=== PATIENT | male | born 1965 | race Caucasian/White ===

== ENCOUNTER 2022-09-18 15:29 | Observation (INO) ==
--- NOTE | 2022-09-18 17:33 | EKG ---
Test Reason : increased heart rate, shortness of breath Blood Pressure : */* mmHG Vent. Rate : 108 BPM Atrial Rate : 108 BPM P-R Int : 152 ms QRS Dur : 84 ms QT Int : 350 ms P-R-T Axes : 54 -50 48 degrees QTc Int : 469 ms Sinus tachycardia with occasional premature ventricular complexes Possible Left atrial enlargement Left anterior fascicular block Abnormal ECG No previous ECGs available Confirmed by Evin Arana ([id number]) on 09/18/2022 5:46:56 PM Referred By: Confirmed By: Evin Arana
[2022-09-18] MEDS: ASPIRIN PO SCH (17:53)
[2022-09-18 17:59] LABS: BASOPHILS # (AUTO) 0.1 X10^3/uL (0.0-0.1); BASOPHILS % (AUTO) 0.6 % (0.2-1.0); EOSINOPHILS % (AUTO) 0.3 % (0.9-2.9); HEMATOCRIT 43.6 % (42.0-54.0); HEMOGLOBIN 14.6 g/dL (13.5-18.0); LYMPHOCYTES # (AUTO) 2.7 X10^3/uL (1.3-2.9); LYMPHOCYTES % (AUTO) 19.4 % (21.0-51.0); MEAN CORPUSCULAR HEMOGLOBIN 30.5 pg (27.0-34.0); MEAN CORPUSCULAR HGB CONC 33.6 g/dL (33.0-35.0); MEAN CORPUSCULAR VOLUME 90.8 fL (80.0-100.0); MEAN PLATELET VOLUME 9.2 fL (7.4-11.0); MONOCYTES # (AUTO) 0.8 x10^3/uL (0.3-0.8); NEUTROPHILS # (AUTO) 10.2 x10^3/uL (2.2-4.8); NEUTROPHILS % (AUTO) 73.7 % (42.0-75.0); PLATELET COUNT 193 X10^3/uL (150.0-450.0); WHITE BLOOD COUNT 13.8 X10^3/uL (3.6-10.0)
[2022-09-18 18:00] VITALS: BMI 26.8
[2022-09-18 18:29] LABS: ALANINE AMINOTRANSFERASE 34 Units/L (12-78); ALBUMIN 3.5 g/dL (3.4-5.0); ALKALINE PHOSPHATASE 97 Units/L (46-116); ASPARTATE AMINO TRANSFERASE 24 Units/L (15-37); BLOOD UREA NITROGEN 16 mg/dL (7-18); CALCIUM 8.4 mg/dL (8.5-10.1); CARBON DIOXIDE 25.2 mmol/L (21-32); CHLORIDE 100 mmol/L (98-107); COR NA(FOR HYPERGLY) 136 mmol/L (136-145); CREATININE 1.13 mg/dL (0.70-1.30); GLUCOSE 115 mg/dL (65-99); SODIUM 136 mmol/L (136-145); TOTAL PROTEIN 6.3 g/dL (6.4-8.2); eGFR NON BLACK RACES > 60 (>60)
[2022-09-18] MEDS: LIPITOR TAB 40 MG PO SCH (20:06)
[2022-09-18 20:14] LABS: APPEARANCE,URINE CLEAR (CLEAR); BLOOD/HEMOGLOBIN,URINE NEGATIVE (NEGATIVE); COLOR,URINE DARK YELLOW (YELLOW); GLUCOSE, URINE NEGATIVE (NEGATIVE); KETONES,URINE NEGATIVE (NEGATIVE); NITRITES,URINE NEGATIVE (NEGATIVE); PROTEIN,URINE TRACE (NEGATIVE)
[2022-09-18 20:15] LABS: BILIRUBIN,URINE NEGATIVE (NEGATIVE); LEUKOCYTE ESTERASE ,URINE NEGATIVE (NEGATIVE); UROBILINOGEN,URINE NORMAL (NORMAL)
[2022-09-18 20:18] LABS: BACTERIA,URINE NEGATIVE /HPF (NEGATIVE); HYALINE CASTS, URINE RARE /LPF (NEGATIVE); RBC,URINE 0-2 /HPF (0-3); SQUAMOUS EPITHELIAL CELL,UR RARE /HPF (NEGATIVE)
--- NOTE | 2022-09-18 22:37 | EKG ---
Test Reason : shortness of breath, chest pain Blood Pressure : */* mmHG Vent. Rate : 94 BPM Atrial Rate : 94 BPM P-R Int : 156 ms QRS Dur : 86 ms QT Int : 368 ms P-R-T Axes : 59 -58 44 degrees QTc Int : 460 ms Normal sinus rhythm Possible Left atrial enlargement Left anterior fascicular block Abnormal ECG When compared with ECG of 18-SEP-2022 17:23, premature ventricular complexes are no longer present Confirmed by Evin Arana (4) on 09/20/2022 4:39:08 PM Referred By: Confirmed By: Evin Arana
[2022-09-19 05:25] LABS: BASOPHILS # (AUTO) 0.1 X10^3/uL (0.0-0.1); BASOPHILS % (AUTO) 0.5 % (0.2-1.0); EOSINOPHILS % (AUTO) 0.3 % (0.9-2.9); HEMATOCRIT 41.1 % (42.0-54.0); HEMOGLOBIN 14.2 g/dL (13.5-18.0); LYMPHOCYTES # (AUTO) 2.7 X10^3/uL (1.3-2.9); LYMPHOCYTES % (AUTO) 21.2 % (21.0-51.0); MEAN CORPUSCULAR HEMOGLOBIN 31.1 pg (27.0-34.0); MEAN CORPUSCULAR HGB CONC 34.5 g/dL (33.0-35.0); MEAN CORPUSCULAR VOLUME 90.2 fL (80.0-100.0); MEAN PLATELET VOLUME 9.4 fL (7.4-11.0); MONOCYTES # (AUTO) 0.8 x10^3/uL (0.3-0.8); MONOCYTES % (AUTO) 6.5 % (0.0-13.0); NEUTROPHILS # (AUTO) 9.1 x10^3/uL (2.2-4.8); NEUTROPHILS % (AUTO) 71.5 % (42.0-75.0); PLATELET COUNT 180 X10^3/uL (150.0-450.0); RED BLOOD COUNT 4.56 X10^6/uL (4.7-6.0); RED CELL DISTRIBUTION WIDTH 14.1 % (11.6-16.5); WHITE BLOOD COUNT 12.7 X10^3/uL (3.6-10.0)
[2022-09-19 05:50] LABS: ALANINE AMINOTRANSFERASE 34 Units/L (12-78); ALBUMIN 3.1 g/dL (3.4-5.0); ALKALINE PHOSPHATASE 97 Units/L (46-116); ASPARTATE AMINO TRANSFERASE 24 Units/L (15-37); BLOOD UREA NITROGEN 16 mg/dL (7-18); CALCIUM 8.3 mg/dL (8.5-10.1); CARBON DIOXIDE 27.1 mmol/L (21-32); CHLORIDE 102 mmol/L (98-107); CHOL/HDL RATIO 5.1 (0.0-5.0); CHOLESTEROL 144 mg/dL (0-200); COR NA(FOR HYPERGLY) 139 mmol/L (136-145); CREATININE 1.16 mg/dL (0.70-1.30); GLUCOSE 123 mg/dL (65-99); HDL CHOLESTEROL 28 mg/dL (40-60); POTASSIUM 4.3 mmol/L (3.5-5.1); SODIUM 138 mmol/L (136-145); TOTAL PROTEIN 5.9 g/dL (6.4-8.2); TRIGLYCERIDES 75 mg/dL (0-150); eGFR NON BLACK RACES > 60 (>60)
--- NOTE | 2022-09-19 06:12 | EKG ---
Test Reason : shortness of breath Blood Pressure : */* mmHG Vent. Rate : 94 BPM Atrial Rate : 94 BPM P-R Int : 150 ms QRS Dur : 86 ms QT Int : 366 ms P-R-T Axes : 65 -51 27 degrees QTc Int : 457 ms Sinus rhythm with occasional premature ventricular complexes Possible Left atrial enlargement Left anterior fascicular block Abnormal ECG When compared with ECG of 18-SEP-2022 22:28, (Unconfirmed) premature ventricular complexes are now present Confirmed by Evin Arana (4) on 09/20/2022 4:38:50 PM Referred By: Confirmed By: Evin Arana
--- NOTE | 2022-09-19 06:39 | RAD ---
HISTORYchest painSTUDYCHEST, 1 VIEWCOMPARISONNoneFINDINGSThe trachea is midline. The cardiac silhouette is enlarged with a tortuous thoracic aorta. Chronic interstitial lung changes are observed without focal infiltrate or effusion.. The bony thorax is unremarkable.IMPRESSIONNo acute cardiopulmonary disease.Electronically signed by: FRANDY PEGUERO (Sep 19, 2022 06:38:26)
--- NOTE | 2022-09-19 07:01 | RAD ---
HISTORYChest pain and shortness of breathSTUDYCHEST, 1 BECBAHEHPQWMAS84/31/2023FINDINGSThe trachea is midline. The cardiac silhouette is enlarged with a tortuous thoracic aorta . Increased interstitial changes with prominent vascular markings are observed consistent with underlying CHF.. The bony thorax is unremarkable.IMPRESSIONIncreased interstitial changes with prominent vascular markings are observed consistent with underlying CHF.Electronically signed by: FRANDY PEGUERO (Sep 19, 2022 06:52:06)
--- NOTE | 2022-09-19 09:03 | DR.UPDATE ---
H&P Update Prescription drug monitoring program results: PDMP reviewed and no concerns identified H&P Reviewed: Yes Any changes to H&P?: Yes Changes noted:: IS A 56 YEAR OLD PATIENT OF OURS. HE PRESENTED TO THE OFFICE TODAY WITH COMPLAINTS OF NEW ONSET SHORTNESS OF BREATH AND TACHYCARDIA. HIS SYMPTOMS STARTED ON 09/15. HE REPORTS THAT THE SHORTNESS OF BREATH HAS BEEN PERSISTENT AND WORSENING. IT IS WORSE WITH EXERTION. HE WAS ADMITTED TO THE HOSPTIAL OBSERVATION STATUS FOR FURTHER EVALUATION AND TREATMENT. ON ARRIVAL TO THE HOSPITAL, HIS VITALS WERE 98.1-107-32-96%-100/72. LABS WERE OBTAINED. WBC 13.8, RBC 4.80, HGB 14.6, HCT 43.6, PLT COUNT 193, D-DIMER 0.51, SODIUM 136, POTASSIUM 4.0, CHLORIDE 100, CARBON DIOXIDE 25.2, BUN 16, CREATININE 1.13, GLUCOSE 115, CALCIUM 8.4, TOTAL BILI 0.60, AST 24, ALT 34, ALK PHOS 97, TROPONIN 81.36, BNP 541, TOTAL PROTEIN 6.3, ALBUMIN 3.5. A URINALYSIS WAS OBTAINED AND WAS UNREMARKABLE. AN EKG WAS OBTAINED AND REVEALED: SINUS TACHYCARDIA WITH OCCASIONAL PVCs. HR 108 BPM. A CHEST XRAY WAS OBTAINED AND REVEALED: Increased interstitial changes with prominent vascular markings are observed consistent with underlying CHF. HE WAS STARTED ON SOLU-MEDROL 40MG IV Q8H, DUONEBS TID, ASPIRIN 325MG, AND ATORVASTATIN 40MG HS. WE WILL REPEAT SERIAL CARDIAC ENZYMES AND EKGS. WE WILL ALSO OBTAIN AN ECHOCARDIOGRAM AND CHEST CT WITH CONTRAST. OTHERWISE, WE PLAN TO FOLLOW-UP WITH AM LABS AND CONTINUE TO MONITOR. TIME SPENT ON CLINICAL ASSESSMENT, REVIEWING LABS AND IMAGING, DECISION MAKING, AND DOCUMENTATION GREATER THAN 75 MINUTES. Patient was examined?: Yes
[2022-09-19] MEDS: NICOTINE PATCH TD SCH (10:00)
[2022-09-19] MEDS: ASPIRIN PO SCH (10:00)
[2022-09-19] MEDS: LOVENOX INJ 40 MG SYR SC SCH (10:02)
[2022-09-19] MEDS: DUONEB 0.5 MG/3 MG (3 mL) NEB SCH ×3 (10:09→21:20)
[2022-09-19] MEDS: SOLU-Medrol 40 MG VIAL IVP SCH ×3 (15:22→21:10)
--- NOTE | 2022-09-19 17:01 | CT ---
HISTORYSOB.STUDYCHEST WITH CONCOMPARISONChest radiograph 09/19/2022TECHNIQUEMultiple CT axial images of the chest were obtained with IV contrast. Coronal and sagittal images were reconstructed. Dose reduction techniques included Automated Exposure Control (AEC) and adjustment of mA and kV.FINDINGSCardiomegaly is present. This involves all 4 chambers. Pulmonary artery is dilated measuring 3.8 cm. This can be seen with pulmonary arterial hypertension. Aorta has a normal caliber.Lymphadenopathy is noted in the mediastinum. Typical lymph node measures about 16 mm in short axis as seen in the prevascular space. Smaller right hilar lymphadenopathy is present.The thyroid has a normal size and configuration. No axillary mass or significant axillary lymphadenopathy is identified.Small right and trace left pleural effusions are present. There are areas of interlobular septal thickening mostly in the lower lungs. New bilateral ground-glass opacity is noted. The findings suggest pulmonary edema. In the setting of cardiomegaly this may be congestive heart failure.There are also emphysematous changes in the lungs. This is paraseptal and centrilobular type.Limited views of the upper abdomen show no significant abnormality.Degenerative changes are present in the spine. Possible enchondroma in the proximal right humerus. Differential diagnosis includes a bone infarct.IMPRESSION1. Findings suggesting CHF2. Mediastinal lymphadenopathy, possibly from CHF; recommend follow-up chest CT in 3 months3. Emphysema without pneumoniaElectronically signed by: Toño Boyd (Sep 19, 2022 17:00:16)
[2022-09-19] MEDS: LIPITOR TAB 40 MG PO SCH (21:10)
[2022-09-20] MEDS: SOLU-Medrol 40 MG VIAL IVP SCH (05:20)
[2022-09-20 05:30] LABS: BASOPHILS % (AUTO) 0.1 % (0.2-1.0); HEMATOCRIT 42.9 % (42.0-54.0); LYMPHOCYTES # (AUTO) 0.6 X10^3/uL (1.3-2.9); LYMPHOCYTES % (AUTO) 6.1 % (21.0-51.0); MEAN CORPUSCULAR HEMOGLOBIN 31.6 pg (27.0-34.0); MEAN CORPUSCULAR HGB CONC 34.9 g/dL (33.0-35.0); MEAN CORPUSCULAR VOLUME 90.4 fL (80.0-100.0); MEAN PLATELET VOLUME 10.5 fL (7.4-11.0); MONOCYTES # (AUTO) 0.1 x10^3/uL (0.3-0.8); MONOCYTES % (AUTO) 1.2 % (0.0-13.0); NEUTROPHILS # (AUTO) 9.4 x10^3/uL (2.2-4.8); NEUTROPHILS % (AUTO) 92.6 % (42.0-75.0); PLATELET COUNT 185 X10^3/uL (150.0-450.0); RED BLOOD COUNT 4.75 X10^6/uL (4.7-6.0); RED CELL DISTRIBUTION WIDTH 14.3 % (11.6-16.5); WHITE BLOOD COUNT 10.1 X10^3/uL (3.6-10.0)
[2022-09-20 05:41] LABS: ALANINE AMINOTRANSFERASE 48 Units/L (12-78); ALBUMIN 3.4 g/dL (3.4-5.0); ALKALINE PHOSPHATASE 106 Units/L (46-116); ASPARTATE AMINO TRANSFERASE 24 Units/L (15-37); BLOOD UREA NITROGEN 19 mg/dL (7-18); CALCIUM 8.8 mg/dL (8.5-10.1); CARBON DIOXIDE 27.8 mmol/L (21-32); CHLORIDE 100 mmol/L (98-107); COR NA(FOR HYPERGLY) 139 mmol/L (136-145); CREATININE 1.12 mg/dL (0.70-1.30); GLUCOSE 177 mg/dL (65-99); POTASSIUM 4.5 mmol/L (3.5-5.1); SODIUM 137 mmol/L (136-145); TOTAL PROTEIN 6.5 g/dL (6.4-8.2); eGFR NON BLACK RACES > 60 (>60)
[2022-09-20 06:07] LABS: PLATELET MORPHOLOGY COMMENT NORMAL (NORMAL)
[2022-09-20] MEDS: DUONEB 0.5 MG/3 MG (3 mL) NEB SCH (06:25)
[2022-09-20] MEDS: LOVENOX INJ 40 MG SYR SC SCH (08:40)
[2022-09-20] MEDS: NICOTINE PATCH TD SCH (08:40)
[2022-09-20] MEDS: ASPIRIN PO SCH (08:40)
[2022-09-20 09:09] VITALS: TEMP 97.5
[2022-09-20 10:17] VITALS: BP 94/72; PULSE 101; O2SAT 98
== END 2022-09-20 11:20 | disposition home or self-care (01) ==
LOC: ICU
PROVIDERS: ADMIT Internal Medicine; ATTEND Internal Medicine
DX: R07.89 Other chest pain; R00.0 Tachycardia, unspecified; R77.8 Other specified abnormalities of plasma proteins; R55 Syncope and collapse; R06.02 Shortness of breath; R42 Dizziness and giddiness